=== PATIENT | female | born 1960 | race Caucasian/White ===

== ENCOUNTER 2018-12-20 13:49 | Emergency (ER) | payer BC ==
[2018-12-20 14:55] LABS: Urine Blood TRACE (NEG); Urine Glucose NEGATIVE (NEG); Urine Protein NEGATIVE (NEG); Urine Specific Gravity <1.005 (1.005-1.030)
--- NOTE | 2018-12-20 16:21 | ER ---
Nurse's Notes [facility] Name: Leonor Ray Age: 58 yrs Sex: Female : 1960 Arrival Date: 12/20/2018 Time: 13:53 Bed 23 Private MD: Oren Wasserman Diagnosis: Cystocele Presentation: 12/20 14:16 Presenting complaint: Patient states: "I got something that's prolapsed out of my aj1 vagina" States that she noticed it today. Denies pain. Transition of care: patient was not received from another setting of care. Onset of symptoms was December 20, 2018. Risk Assessment: Do you want to hurt yourself or someone else? Patient reports no desire to harm self or others. Initial Sepsis Screen: Does the patient meet any 2 criteria? No. Patient's initial sepsis screen is negative. Does the patient have a suspected source of infection? No. Patient's initial sepsis screen is negative. Care prior to arrival: None. 14:16 Method Of Arrival: Ambulatory aj 14:16 Acuity: WHTI 3 aj1 Triage Assessment: 14:19 General: Appears in no apparent distress. comfortable, Behavior is calm, cooperative, aj1 appropriate for age. Pain: Denies pain. Neuro: Level of Consciousness is awake, alert, obeys commands. Cardiovascular: Patient's skin is warm and dry. Respiratory: Airway is patent Respiratory effort is even, unlabored, Respiratory pattern is regular, symmetrical. Historical: - Allergies: 14:19 No Known Allergies; aj1 - Home Meds: 14:19 Remeron 45 mg Oral tab 1 tab once daily [Active]; lisinopril 40 mg Oral tab 1 tab once aj1 daily [Active]; Concerta 18 mg Oral tr24 1 tab once daily [Active]; Ativan 0.5 mg Oral tab 1 tab as needed [Active]; - PMHx: 14:19 Hypertension; ADD/ADHD; retinal tear; aj1 - PSHx: 14:19 Appendectomy; aj1 - Immunization history:: Flu vaccine is up to date. - Social history:: Smoking status: Patient/guardian denies using tobacco. - Ebola Screening: : Patient denies travel to an Ebola-affected area in the 21 days before illness onset. Screenin:47 Abuse screen: Denies threats or abuse. Denies injuries from another. Nutritional mg2 screening: No deficits noted. Tuberculosis screening: No symptoms or risk factors identified. Fall Risk None identified. Assessment: 14:48 General: Appears in no apparent distress. comfortable. Pain: Denies pain. Neuro: Level mg2 of Consciousness is awake, alert, obeys commands, Oriented to person, place, time, situation. Cardiovascular: Capillary refill < 3 seconds Patient's skin is warm and dry. Respiratory: Airway is patent Respiratory effort is even, unlabored, Respiratory pattern is regular, symmetrical. GI: No signs and/or symptoms were reported involving the gastrointestinal system. : Reports vaginal problem,protrusion. EENT: No deficits noted. Derm: Skin is intact, is healthy with good turgor, Skin is pink, warm \\T\\ dry. normal. Musculoskeletal: Circulation, motion, and sensation intact. Capillary refill < 3 seconds. 16:41 Reassessment: Patient denies pain at this time. mg2 Vital Signs: 14:19 Pulse 90; Resp 18; Temp 97.4; Pulse Ox 98% on R/A; Weight 65.77 kg (R); Height 5 ft. 5 aj1 in. (165.10 cm) (R); Pain 0/10; 14:27 BP 213 / 107; aj1 14:50 BP 188 / 104 (auto/reg); Pulse 84; Resp 18; Pulse Ox 100% on R/A; mg2 16:12 BP 183 / 106; la1 14:19 Body Mass Index 24.13 (65.77 kg, 165.10 cm) aj1 14:27 Patient states that her blood pressure always reads high when taken with an automatic aj1 cuff. States that it is typically lower when taken manually. Notified charge nurse MAJO [place] ED Course: 13:53 Patient arrived in ED. mr 13:54 Oren Wasserman DO is Private Physician. mr 14:17 Triage completed. aj1 14:19 Arm band placed on Patient placed in an exam room. aj1 14:25 Urine collected: clean catch specimen, clear, santos colored. jp3 14:31 Peyton Arciniega FNP is PHCP. nh 14:31 Jeremy Hammer MD is Attending Physician. nh 14:35 Willy Yadav RN is Primary Nurse. mg2 14:48 Patient has correct armband on for positive identification. mg2 14:48 No provider procedures requiring assistance completed. mg2 16:42 Patient did not have IV access during this emergency room visit. mg2 Administered Medications: No medications were administered Outcome: 16:20 Discharge ordered by . ma 16:42 Discharged to home ambulatory, with family. mg2 16:42 Condition: stable 16:42 Discharge instructions given to patient, family, Instructed on discharge instructions, follow up and referral plans. Demonstrated understanding of instructions, follow-up care. 16:43 Patient left the ED. mg2 Signatures: Dayna Antonio, MAJO RN aj1 Peyton Arciniega, PERIPHERAL EDP EQUIPMENT OPERATOR PERIPHERAL EDP EQUIPMENT OPERATOR ma Fina Manzano mr Rhett River, RN RN la1 Willy Yadav, RN RN mg2 Randy Mccain jp3
--- NOTE | 2018-12-20 16:21 | EDPHYS ---
Physician Documentation [facility] Name: Leonor Ray Age: 58 yrs Sex: Female : 1960 Arrival Date: 12/20/2018 Time: 13:53 Bed 23 Private MD: [facility] ED Physician Jeremy Hammer HPI: 12/20 15:58 This 58 yrs old Female presents to ER via Ambulatory with complaints of nh Vvaginal problem. 15:58 Onset: The symptoms/episode began/occurred this morning. Associated signs and symptoms: nh The patient has no apparent associated signs or symptoms. Modifying factors: The patient symptoms are alleviated by nothing, the patient symptoms are aggravated by nothing. The patient has not experienced similar symptoms in the past. The patient has not recently seen a physician. Patient states that she felt something protruding from her vagina. She states that there is no pain, but she is uncomfortable. Denies discharge. Historical: - Allergies: 14:19 No Known Allergies; aj1 - Home Meds: 14:19 Remeron 45 mg Oral tab 1 tab once daily [Active]; lisinopril 40 mg Oral tab 1 tab once aj1 daily [Active]; Concerta 18 mg Oral tr24 1 tab once daily [Active]; Ativan 0.5 mg Oral tab 1 tab as needed [Active]; - PMHx: 14:19 Hypertension; ADD/ADHD; retinal tear; aj1 - PSHx: 14:19 Appendectomy; aj1 - Immunization history:: Flu vaccine is up to date. - Social history:: Smoking status: Patient/guardian denies using tobacco. - Ebola Screening: : Patient denies travel to an Ebola-affected area in the 21 days before illness onset. ROS: 15:58 Constitutional: Negative for fever, chills, and weight loss, Eyes: Negative for injury, nh pain, redness, and discharge, ENT: Negative for injury, pain, and discharge, Neck: Negative for injury, pain, and swelling, Cardiovascular: Negative for chest pain, palpitations, and edema, Respiratory: Negative for shortness of breath, cough, wheezing, and pleuritic chest pain, Abdomen/GI: Negative for abdominal pain, nausea, vomiting, diarrhea, and constipation, Back: Negative for injury and pain, MS/Extremity: Negative for injury and deformity, Skin: Negative for injury, rash, and discoloration, Neuro: Negative for headache, weakness, numbness, tingling, and seizure, Psych: Negative for depression, anxiety, suicide ideation, homicidal ideation, and hallucinations, Allergy/Immunology: Negative for hives, rash, and allergies, Endocrine: Negative for neck swelling, polydipsia, polyuria, polyphagia, and marked weight changes, Hematologic/Lymphatic: Negative for swollen nodes, abnormal bleeding, and unusual bruising. 15:58 : Positive for Patient reports protrusion from vagina. No difficulty urinating. Exam: 15:58 Constitutional: This is a well developed, well nourished patient who is awake, alert, nh and in no acute distress. Head/Face: Normocephalic, atraumatic. Eyes: Pupils equal round and reactive to light, extra-ocular motions intact. Lids and lashes normal. Conjunctiva and sclera are non-icteric and not injected. Cornea within normal limits. Periorbital areas with no swelling, redness, or edema. ENT: Nares patent. No nasal discharge, no septal abnormalities noted. Tympanic membranes are normal and external auditory canals are clear. Oropharynx with no redness, swelling, or masses, exudates, or evidence of obstruction, uvula midline. Mucous membranes moist. Neck: Trachea midline, no thyromegaly or masses palpated, and no cervical lymphadenopathy. Supple, full range of motion without nuchal rigidity, or vertebral point tenderness. No Meningismus. Chest/axilla: Normal chest wall appearance and motion. Nontender with no deformity. No lesions are appreciated. Cardiovascular: Regular rate and rhythm with a normal S1 and S2. No gallops, murmurs, or rubs. Normal PMI, no JVD. No pulse deficits. Respiratory: Lungs have equal breath sounds bilaterally, clear to auscultation and percussion. No rales, rhonchi or wheezes noted. No increased work of breathing, no retractions or nasal flaring. Abdomen/GI: Soft, non-tender, with normal bowel sounds. No distension or tympany. No guarding or rebound. No evidence of tenderness throughout. Back: No spinal tenderness. No costovertebral tenderness. Full range of motion. Female : Normal external genitalia. Skin: Warm, dry with normal turgor. Normal color with no rashes, no lesions, and no evidence of cellulitis. MS/ Extremity: Pulses equal, no cyanosis. Neurovascular intact. Full, normal range of motion. Neuro: Awake and alert, GCS 15, oriented to person, place, time, and situation. Cranial nerves II-XII grossly intact. Motor strength 5/5 in all extremities. Sensory grossly intact. Cerebellar exam normal. Normal gait. Psych: Awake, alert, with orientation to person, place and time. Behavior, mood, and affect are within normal limits. Vital Signs: 14:19 Pulse 90; Resp 18; Temp 97.4; Pulse Ox 98% on R/A; Weight 65.77 kg (R); Height 5 ft. 5 aj1 in. (165.10 cm) (R); Pain 0/10; 14:27 BP 213 / 107; aj1 14:50 BP 188 / 104 (auto/reg); Pulse 84; Resp 18; Pulse Ox 100% on R/A; mg2 16:12 BP 183 / 106; la1 14:19 Body Mass Index 24.13 (65.77 kg, 165.10 cm) aj1 14:27 Patient states that her blood pressure always reads high when taken with an automatic aj1 cuff. States that it is typically lower when taken manually. Notified charge nurse MAJO [place] MDM: 14:31 Patient medically screened. ar 15:58 Data reviewed: vital signs, nurses notes, lab test result(s), I have discussed the ar patient's presentation/case with the attending Emergency Department Physician; and as a result, I will discharge patient. Counseling: I had a detailed discussion with the patient and/or guardian regarding: the historical points, exam findings, and any diagnostic results supporting the discharge/admit diagnosis, lab results, the need for outpatient follow up, to return to the emergency department if symptoms worsen or persist or if there are any questions or concerns that arise at home. 12/20 14:38 Order name: Urine Dipstick--Ancillary (enter results) ms Administered Medications: No medications were administered Disposition: 18:13 Co-signature as Attending Physician, Jeremy Hammer MD. Disposition: 12/20/18 16:20 Discharged to Home. Impression: Cystocele. - Condition is Stable. - Medication Reconciliation Form, Thank You Letter, Antibiotic Education, Prescription Opioid Use form. - Follow up: Private Physician; When: 5 - 6 days; Reason: Recheck today's complaints. - Problem is new. - Symptoms are unchanged. Signatures: Dispatcher [employer] Dayna Caldwell RN RN aj1 Peyton Arciniega, SHEAR HELPER SHEAR HELPER ar Jeremy Hammer MD MD Willy Yadav RN RN mg2 Corrections: (The following items were deleted from the chart) 16:43 16:20 12/20/2018 16:20 Discharged to Home. Impression: Cystocele. Condition is Stable. mg2 Forms are Medication Reconciliation Form, Thank You Letter, Antibiotic Education, Prescription Opioid Use. Follow up: Private Physician; When: 5 - 6 days; Reason: Recheck today's complaints. Problem is new. Symptoms are unchanged. nh
== END 2018-12-20 16:43 | disposition home or self-care (01) ==
LOC: ER 13:49
DX: N81.10 Cystocele, unspecified (principal); I10 Essential (primary) hypertension; F90.9 Attention-deficit hyperactivity disorder, unspecified type
CPT/HCPCS: 81003; 99283

== ENCOUNTER → 2022-05-07 | Day surgery (SDC) | payer BC ==
--- NOTE | 2022-05-03 08:36 | RAD REPORT ---
EXAM DESCRIPTION: Amaris Quintero (2 Views)05/03/2022 8:25 am CLINICAL HISTORY: Preop for colonoscopy. Hypertension COMPARISON: None FINDINGS: The lungs appear clear of acute infiltrate. The heart is normal size IMPRESSION: No acute abnormalities displayed
[2022-05-03 08:46] LABS: Absolute Lymphocytes (CBC) 1.3 K/uL (0.7-4.9); Hematocrit 44.3 % (36.0-45.0); Lymphocytes % 29.6 % (15.3-44.8); MCV 89.7 fL (80-100); RBC Red Blood Cell Count 4.94 M/uL (3.86-4.86)
[2022-05-03 08:59] LABS: Potassium 4.5 mmol/L (3.5-5.1)
[~2022-05-07] MED LIST: LIDOCAINE 1% MPF 5 ML VIAL ONE; Ringers Lactate 1,000 ML IV ONE; propofoL 200 MG/20 ML VIAL IV ONE
--- NOTE | 2022-05-07 09:05 | ENDO RPT ---
[address], [address] COLONOSCOPY PROCEDURE REPORT EXAM DATE: 05/07/2022 PATIENT NAME: Leonor Ray MR #: [id number] BIRTHDATE: 1960 ATTENDING: Oscar Mayo M.D. STATUS: outpatient PATHOLOGY TRANSCRIPTIONIST: Hansa Clark RN and Natalie Reece CST INDICATIONS: The patient is a 62 yr old Female here for a colonoscopy due to colon cancer screening PROCEDURE PERFORMED: Colonoscopy MEDICATIONS: Per Anesthesia. ESTIMATED BLOOD LOSS: None CONSENT: The patient understands the risks and benefits of the procedure and understands that these risks include, but are not limited to: sedation, allergic reaction, infection, perforation and/or bleeding. Alternative means of evaluation and treatment include, among others: physical exam, x-rays, and/or surgical intervention. The patient elects to proceed with this endoscopic procedure. DESCRIPTION OF PROCEDURE: During intra-op preparation period all mechanical medical equipment was checked for proper function. Hand hygiene and appropriate measures for infection prevention was taken. Procedure, possible complications, alternatives including, but not limited to possibility of bleeding, perforation, tear, infection, sepsis, need for surgery, need for blood transfusion, were explained to the patient. After the risks, benefits and alternatives of the procedure were thoroughly explained, Informed consent was verified, confirmed and timeout was successfully executed by the treatment team. The patient was placed in the left lateral position. A digital rectal exam was performed and revealed no abnormalities of the rectum. After appropriate level of anesthesia, the scope was passed. The EC-[id number] ([id number]) endoscope was introduced through the anus and advanced to the cecum, which was identified by the ileocecal valve. The quality of the prep was fair. The instrument was then slowly withdrawn as the colon was fully examined. Scope withdrawal time was 14 minutes. COLON FINDINGS: Moderate diverticulosis was noted throughout the entire examined colon. Retroflexed views revealed no abnormalities and Retroflexed views revealed medium hemorrhoids. The scope was then completely withdrawn from the patient and the procedure terminated. ADVERSE EVENTS: There were no complications. IMPRESSIONS: 1. Moderate diverticulosis was noted throughout the entire examined colon 2. Internal hemorrhoids RECOMMENDATIONS: 1. fiber rich diet 2. Metamucil 3. follow-up: office 1 week(s) 4. increase dietary water 5. no seeds in diet RECALL: Return in 10 year(s) for Colonoscopy. Oscar Mayo M.D. eSigned: Oscar Mayo M.D. 05/07/2022 9:04 AM cc: Oren Wasserman MD CPT CODES: ICD9 CODES: PATIENT NAME: Leonor RayHaley MR#: [id number]
[2022-05-07 09:31] VITALS: BP 137/71; TEMP 98.1; O2SAT 96
== END ==
LOC: OR 07:09
PROVIDERS: ATTEND Surgery
PROC: 0DJD8ZZ Inspection of Lower Intestinal Tract, Via Natural or Artificial Opening Endoscopic (ICD-10-PCS; principal; 2022-05-07 08:30)
DX: Z12.11 Encounter for screening for malignant neoplasm of colon (principal); K57.30 Diverticulosis of large intestine without perforation or abscess without bleeding; K64.8 Other hemorrhoids
CPT/HCPCS: 85025; 80048; 36415; 71046; J2704 ×2; J2001; J7120; G0121